=== PATIENT | female | born 1970 | race African-American/Black ===

== ENCOUNTER 2016-05-15 09:24 | Inpatient (IN) | payer OTHER ==
[2016-05-15 09:54] VITALS: BMI 29.2
--- NOTE | 2016-05-15 10:25 | HP ---
CIWA Score - CIWA Score Nausea/Vomitin-Mild Nausea/No Vomiting Muscle Tremors: 4-Moderate,w/Arms Extend Anxiety: 4-Mod. Anxious/Guarded Agitation: 1-Slight > Activity Paroxysmal Sweats: 1-Minimal Palms Moist Orientation: 0-Oriented Tacttile Disturbances: 1-Very Mild Itch/Numbness Auditory Disturbances: 1-Very Mild Visual Disturbances: 1-Very Mild Sensitivity Headache: 1-Very Mild CIWA-Ar Total Score: 15 Admission ROS BHS - HPI Chief Complaint: I want to stop drinking, I drink too much Allergies/Adverse Reactions: Allergies Allergy/AdvReac Type Severity Reaction Status Date / Time Penicillins Allergy Intermediate Difficulty Verified 05/15/16 10:13 Breathing History of Present Illness: 45 yo woman here for detox from alcohol, crack use. last here in 2007, does have history of drug related seizure. Also with chronic pain - in pain management (dr walters, morphine and percocet) but states she missed her appointment on 05/11 and ran out of her pills - last received them 04/15/16 per [facility]). Counseled patient to avoid drinking and taking opiates and to discuss with pain management doctor. Patient also with history of suicide attempt in September 2015. Exam Limitations: Clinical Condition - Ebola screening Have you traveled outside of the country in the last 21 days: No Have you had contact with anyone from an Ebola affected area: No Have you been sick,other than usual withdrawal symptoms: No Do you have a fever: No - Review of Systems Constitutional: Loss of Appetite, Changes in sleep EENT: reports: No Symptoms Reported Respiratory: reports: No Symptoms reported Cardiac: reports: No Symptoms Reported GI: reports: Nausea, Indigestion : reports: Frequency Musculoskeletal: reports: Back Pain, Muscle Pain Integumentary: reports: Dryness Neuro: reports: Headache, Tremors Endocrine: reports: No Symptoms Reported Hematology: reports: No Symptoms Reported Psychiatric: reports: Judgement Intact, Mood/Affect Appropiate, Orientated x3, Anxious Other Systems: Reviewed and Negative Patient History - Patient Medical History Hx Depression: Yes [facility]x [facility] Hx Bipolar Disorder: Yes Hx Schizophrenia: Yes (not currently hearing voices) - Patient Surgical History Past Surgical History: Yes Hx Abdominal Surgery: Yes (abdominal hernia repair 2015) Hx Section: Yes (three) Hx Orthopedic Surgery: Yes (left ankle pins/screws 2009; shoulder injury 2014) - PPD History Previous Implant?: Yes Documented Results: Negative w/o proof PPD to be Administered?: Yes - Reproductive History Patient is a Female of Child Bearing Age (11 -55 yrs old): Yes Patient : No - Smoking Cessation Smoking history: Current every day smoker Have you smoked in the past 12 months: Yes Aproximately how many cigarettes per day: 5 Initiated information on smoking cessation: Yes 'Breaking Loose' booklet given: 05/15/16 (give on floor) - Substance & Tx. History Hx Alcohol Use: Yes Hx Substance Use: Yes Substance Use Type: Alcohol, Cocaine Hx Substance Use Treatment: Yes (detox, rehab) - Substances Abused Alcohol Route: Oral Frequency: Daily Amount used: 1.5 liters viviana, three sixteen oz beers Age of first use: 9 Date of Last Use: 05/14/16 Crack Route: Smoking Frequency: 3-6 times per week Amount used: $200 Age of first use: 14 Date of Last Use: 05/14/16 Family Disease History - Family Disease History Family Disease History: [place]: Mother (, etoh and drugs), Other: Father ( , ) Admission Physical Exam S - Vital Signs Vital Signs: Vital Signs - 24 hr 05/15/16 09:52 Temperature 98.5 F Pulse Rate 75 Respiratory 20 Rate Blood Pressure 138/85 - Physical General Appearance: Yes: Nourished, Appropriately Dressed, Mild Distress HEENTM: Yes: Hearing grossly Normal, Normal ENT Inspection, Normocephalic, Normal Voice, Other (upper dentures) Respiratory: Yes: Normal Breath Sounds, No Respiratory Distress Neck: Yes: No masses,lesions,Nodules, Supple Breast: Yes: Breast Exam Deferred Cardiology: Yes: Regular Rhythm, Regular Rate Abdominal: Yes: Soft Genitourinary: Yes: Frequency Back: Yes: Normal Inspection Musculoskeletal: Yes: full range of Motion, Gait Steady, Back pain Extremities: Yes: Normal Inspection, Normal Range of Motion, Other (left ankle scar) Neurological: Yes: Fully Oriented, Alert, Normal Mood/Affect Integumentary: Yes: Normal Color, Warm Lymphatic: Yes: Within Normal Limits - Diagnostic (1) Alcohol dependence with uncomplicated withdrawal Current Visit: Yes Status: Acute (2) Chronic back pain Current Visit: Yes Status: Chronic Qualifiers: Back pain location: low back pain Back pain laterality: bilateral Sciatica presence: without sciatica Qualified Code(s): M54.5 - Low back pain; G89.29 - Other chronic pain (3) Cocaine dependence Current Visit: Yes Status: Chronic Qualifiers: Substance use status: uncomplicated Qualified Code(s): F14.20 - Cocaine dependence, uncomplicated (4) History of seizure Current Visit: Yes Status: Chronic Comment: drug related (5) History of syphilis Current Visit: Yes Status: Chronic Comment: treated with PCN injections (6) Nicotine dependence Current Visit: Yes Status: Acute Qualifiers: Nicotine product type: cigarettes Substance use status: uncomplicated Qualified Code(s): F17.210 - Nicotine dependence, cigarettes, uncomplicated Cleared for Admission BHS - Detox or Rehab [facility] Level of Care: Medically Managed Detox Regimen/Protocol: Librium [facility] Breath Alcohol Content Breath Alcohol Content: 0 Urine Pregancy Test - Result Urine Test Results: Negative- NO Line Present Urine Drug Screen - Results Drug Screen Negative: No Urine Drug Screen Results: DANIELLE-Cocaine
[2016-05-15] MEDS ORDERED: IBUPROFEN 400 MG TABLET (FP) PO PRN (10:31)
[2016-05-15] MEDS ORDERED: MAG HYDROX/AL HYDROX/SIMETH 30 ML UNIT-DOSE CUP PO PRN (10:31)
[2016-05-15] MEDS ORDERED: MAGNESIUM CITRATE 300 ML BOTTLE PO PRN (10:31)
[2016-05-15] MEDS ORDERED: chlordiazePOXIDE HCL 25 MG CAPSULE PO PRN (10:31)
[2016-05-15] MEDS ORDERED: guaiFENesin/D-METHORPHAN HB 10 ML UNIT-DOSE CUPS PO PRN (10:31)
[2016-05-15] MEDS ORDERED: hydrOXYzine PAMOATE 50 MG CAPSULE (FP) PO PRN (10:31)
[2016-05-15] MEDS ORDERED: LOPERAMIDE HCL 2 MG CAPSULE PO PRN (10:31)
[2016-05-15] MEDS ORDERED: ACETAMINOPHEN 325 MG TABLET (FP) PO PRN (10:31)
[2016-05-15] MEDS ORDERED: P-EPHED 60MG/TRIPROLIDI 2.5MG TABLET PO PRN (10:31)
[2016-05-15] MEDS ORDERED: MAGNESIUM HYDROX 2400MG/30ML ORAL SUSPENSION 30 ML CUP PO PRN (10:31)
[2016-05-15] MEDS ORDERED: MENTHOL/PHENOL 1 EACH UD MM PRN (10:31)
[2016-05-15] MEDS ORDERED: chlordiazePOXIDE HCL 25 MG CAPSULE PO ONE (12:15)
[2016-05-15] MEDS: NICOTINE 14 MG/24 HOURS TOPICAL PATCH TD SCH (14:20)
[2016-05-15] MEDS: chlordiazePOXIDE HCL 25 MG CAPSULE PO SCH ×2 (18:17→22:39)
[2016-05-15 18:38] LABS: URINE APPEARANCE CLEAR; URINE BILIRUBIN NEGATIVE (NEGATIVE); URINE BLOOD NEGATIVE (NEGATIVE); URINE COLOR YELLOW; URINE GLUCOSE (UA) NEGATIVE (NEGATIVE); URINE KETONE NEGATIVE (NEGATIVE); URINE LEUK ESTERASE NEGATIVE (NEGATIVE); URINE NITRITE NEGATIVE (NEGATIVE); URINE PROTEIN NEGATIVE (NEGATIVE); URINE UROBILINOGEN NEGATIVE E.U./dl (0.2-1.0)
[2016-05-15] MEDS: THIAMINE HCL 100 MG TABLET (FP) PO SCH (22:39)
[2016-05-15] MEDS: diphenhydrAMINE HCL 50 MG CAPSULE PO PRN (22:39)
[2016-05-16] MEDS: chlordiazePOXIDE HCL 25 MG CAPSULE PO SCH ×4 (06:06→22:16)
[2016-05-16 09:56] LABS: MCH 30.3 pg (25.7-33.7); MCHC 33.7 g/dl (32.0-36.0); MEAN CELL VOLUME 89.8 fl (80-96); MEAN PLT VOLUME 8.6 fl (7.5-11.1); PLATELET COUNT 265 K/MM3 (134-434); RDW 13.8 % (11.6-15.6); WHITE BLOOD COUNT 6.5 K/mm3 (4.0-10.0)
[2016-05-16 10:06] LABS: ALBUMIN 3.2 g/dl (3.4-5.0); ALK PHOS 33 U/L (45-117); ANION GAP 7 (8-16); BILIRUBIN,TOTAL 0.4 mg/dL (0.2-1.0); CALCIUM 8.5 mg/dL (8.5-10.1); CO2 25 mmol/L (21-32); CREATININE 0.6 mg/dL (0.55-1.02); GLUCOSE,RANDOM 101 mg/dL (74-106); SGPT/ALT 16 U/L (12-78); TOT PROT 5.7 g/dl (6.4-8.2)
[2016-05-16 10:08] LABS: SGOT/AST 4 U/L (15-37)
[2016-05-16] MEDS: PRENATAL VITAMINS W/ FOLIC ACID TABLET (FP) PO SCH (10:13)
[2016-05-16] MEDS: NICOTINE 14 MG/24 HOURS TOPICAL PATCH TD SCH (10:13)
--- NOTE | 2016-05-16 11:38 | EKG ---
Test Reason : Blood Pressure : / mmHG Vent. Rate : 067 BPM Atrial Rate : 067 BPM P-R Int : 116 ms QRS Dur : 088 ms QT Int : 404 ms P-R-T Axes : 060 057 033 degrees QTc Int : 426 ms NORMAL SINUS RHYTHM NORMAL ECG NO PREVIOUS ECGS AVAILABLE Confirmed by FRANTZ CHAVEZ MD ([id number]) on 05/16/2016 11:37:33 AM Referred By: Adan Ledezma Confirmed By:FRANTZ CHAVEZ MD
--- NOTE | 2016-05-16 12:29 | PN ---
S CIWA - CIWA Score Nausea/Vomitin Muscle Tremors: 3 Anxiety: 3 Agitation: 3 Paroxysmal Sweats: 1-Minimal Palms Moist Orientation: 0-Oriented Tacttile Disturbances: 2-Mild Itch/Numbness/Burn Auditory Disturbances: 2-Mild Harshness/Frighten Visual Disturbances: 2-Mild Sensitivity Headache: 2-Mild CIWA-Ar Total Score: 21 BHS Progress Note (SOAP) Subjective: ALERT,IRRITABLE,ANXIOUS,INTERRUPTED SLEEP,TREMOR Objective: 05/16/16 12:27 Vital Signs Temperature 98.4 F 05/16/16 10:01 Pulse Rate 76 05/16/16 10:01 Respiratory Rate 16 05/16/16 10:01 Blood Pressure 114/74 05/16/16 10:01 O2 Sat by Pulse Oximetry (%) EKG NSR Laboratory Last Values WBC 6.5 K/mm3 (4.0-10.0) 05/16/16 07:16 RBC 4.23 M/mm3 (3.60-5.2) 05/16/16 07:16 Hgb 12.8 GM/dL (10.7-15.3) 05/16/16 07:16 Hct 38.0 % (32.4-45.2) 05/16/16 07:16 MCV 89.8 fl (80-96) 05/16/16 07:16 MCHC 33.7 g/dl (32.0-36.0) 05/16/16 07:16 RDW 13.8 % (11.6-15.6) 05/16/16 07:16 Plt Count 265 K/MM3 (134-434) 05/16/16 07:16 MPV 8.6 fl (7.5-11.1) 05/16/16 07:16 Sodium 139 mmol/L (136-145) 05/16/16 07:16 Potassium 3.7 mmol/L (3.5-5.1) 05/16/16 07:16 Chloride 107 mmol/L (98-107) 05/16/16 07:16 Carbon Dioxide 25 mmol/L (21-32) 05/16/16 07:16 Anion Gap 7 (8-16) L 05/16/16 07:16 BUN 9 mg/dL (7-18) 05/16/16 07:16 Creatinine 0.6 mg/dL (0.55-1.02) 05/16/16 07:16 Creat Clearance w eGFR > 60 (>60) 05/16/16 07:16 Random Glucose 101 mg/dL (74-106) 05/16/16 07:16 Calcium 8.5 mg/dL (8.5-10.1) 05/16/16 07:16 Total Bilirubin 0.4 mg/dL (0.2-1.0) 05/16/16 07:16 AST 4 U/L (15-37) L 05/16/16 07:16 ALT 16 U/L (12-78) 05/16/16 07:16 Alkaline Phosphatase 33 U/L (45-117) L 05/16/16 07:16 Total Protein 5.7 g/dl (6.4-8.2) L 05/16/16 07:16 Albumin 3.2 g/dl (3.4-5.0) L 05/16/16 07:16 Urine Color Yellow 05/15/16 17:00 Urine Appearance Clear 05/15/16 17:00 Urine pH 6.0 (5.0-8.0) 05/15/16 17:00 Ur Specific [place] 1.027 (1.001-1.035) 05/15/16 17:00 Urine Protein Negative (NEGATIVE) 05/15/16 17:00 Urine Glucose (UA) Negative (NEGATIVE) 05/15/16 17:00 Urine Ketones Negative (NEGATIVE) 05/15/16 17:00 Urine Blood Negative (NEGATIVE) 05/15/16 17:00 Urine Nitrite Negative (NEGATIVE) 05/15/16 17:00 Urine Bilirubin Negative (NEGATIVE) 05/15/16 17:00 Urine Urobilinogen Negative E.U./dl (0.2-1.0) 05/15/16 17:00 Ur Leukocyte Esterase Negative (NEGATIVE) 05/15/16 17:00 RPR Titer Nonreactive (NONREACTIVE) 05/16/16 07:16 Assessment: 05/16/16 12:28 WITHDRAWAL SYMPTOM Plan: CONTINUE DETOX
--- NOTE | 2016-05-16 12:44 | PN ---
[facility] Progress Note Note: ADDENDUM PATIENT STATED SHE LOSS BALANCE TRYING TO GET UP,KNEEL DOWN ON BOTH KNEES, HISTORY OF ARTHRITIS,NO HEAD INJURY,NO INJURY NOTED TREATMENT INITIATE FALL PROTOCOL 2 FALL PRECAUTION OBSERVATION
[2016-05-16] MEDS: THIAMINE HCL 100 MG TABLET (FP) PO SCH (22:16)
[2016-05-16] MEDS: diphenhydrAMINE HCL 50 MG CAPSULE PO PRN (22:16)
[2016-05-17] MEDS: chlordiazePOXIDE HCL 25 MG CAPSULE PO SCH ×2 (06:14→11:22)
--- NOTE | 2016-05-17 10:16 | PN ---
S CIWA - CIWA Score Nausea/Vomitin-No Nausea/No Vomiting Muscle Tremors: 4-Moderate,w/Arms Extend Anxiety: 3 Agitation: 4-Moderately Restless Paroxysmal Sweats: 3 Orientation: 0-Oriented Tacttile Disturbances: 0-None Auditory Disturbances: 0-None Visual Disturbances: 0-None Headache: 0-None Present CIWA-Ar Total Score: 14 BHS Progress Note (SOAP) Subjective: agitation irritable body aches sweats Objective: 05/17/16 10:15 Vital Signs Temperature 98.1 F 05/17/16 10:00 Pulse Rate 74 05/17/16 10:00 Respiratory Rate 18 05/17/16 10:00 Blood Pressure 107/69 05/17/16 10:00 O2 Sat by Pulse Oximetry (%) Assessment: 05/17/16 10:16 withdrawal sx Plan: continue detox increase fluids
[2016-05-17] MEDS: PRENATAL VITAMINS W/ FOLIC ACID TABLET (FP) PO SCH (11:21)
[2016-05-17] MEDS: NICOTINE 14 MG/24 HOURS TOPICAL PATCH TD SCH (11:23)
--- NOTE | 2016-05-17 15:43 | CONSULT ---
[facility] Psychiatric Consult - Data Date of interview: 05/17/16 Admission source: [facility] Identifying data: This is 45 years oold female with psychiatric hospitalization history intoxicatewd with : Alcohol, Cocaine and Nicotine Substance Abuse History: - Smoking Cessation. Smoking history: Current every day smoker. Have you smoked in the past 12 months: Yes. Aproximately how many cigarettes per day: 5. Initiated information on smoking cessation: Yes. ' Breaking Loose' booklet given: 05/15/16 (give on floor). - Substance & Tx. History. Hx Alcohol Use: Yes. Hx Substance Use: Yes. Substance Use Type: Alcohol, Cocaine. Hx Substance Use Treatment: Yes (detox, rehab). - Substances Abused. Alcohol. Route: Oral. Frequency: Daily. Amount used: 1.5 liters viviana, three sixteen oz beers. Age of first use: 9. Date of Last Use: 05/14/16. Crack. Route: Smoking. Frequency: 3-6 times per week. Amount used: $200. Age of first use: 14. Date of Last Use: 05/14/16 Medical History: HIV Psychiatric History: PATIENT REPORTS TO Natali MALIN bBIPOLAR DISORDER WITH MOST RECENT PSYCHIATRIC ADMISSIONON ON 2016 AT [facility] after manic epizode. Patient reports taking prior to admission: - Smoking Cessation. Smoking history: Current every day smoker. Have you smoked in the past 12 months: Yes. Aproximately how many cigarettes per day: 5. Initiated information on smoking cessation: Yes. 'Breaking Loose' booklet given: (give on floor). - Substance & Tx. History. Hx Alcohol Use: Yes. Hx Substance Use: Yes. Substance Use Type: Alcohol, Cocaine. Hx Substance Use Treatment: Yes (detox, rehab). - Substances Abused. Alcohol. Route: Oral. Frequency: Daily. Amount used: 1.5 liters viviana, three sixteen oz beers. Age of first use: 9. Date of Last Use: 05/14/16. Crack. Route: Smoking. Frequency: 3-6 times per week. Amount used: $200. Age of first use: 14. Date of Last Use: 05/14/16 Physical/Sexual Abuse/Trauma History: Denies Additional Comment: - Smoking Cessation. Smoking history: Current every day smoker. Have you smoked in the past 12 months: Yes. Aproximately how many cigarettes per day: 5. Initiated information on smoking cessation: Yes. ' Breaking Loose' booklet given: 05/15/16 (give on floor). - Substance & Tx. History. Hx Alcohol Use: Yes. Hx Substance Use: Yes. Substance Use Type: Alcohol, Cocaine. Hx Substance Use Treatment: Yes (detox, rehab). - Substances Abused. Alcohol. Route: Oral. Frequency: Daily. Amount used: 1.5 liters viviana, three sixteen oz beers. Age of first use: 9. Date of Last Use: 05/14/16. Crack. Route: Smoking. Frequency: 3-6 times per week. Amount used: $200. Age of first use: 14. Date of Last Use: 05/14/16 Mental Status Exam - Mental Status Exam Alert and Oriented to: Person Cognitive Function: Fair Patient Appearance: Unkempt Mood: Anxious Affect: Constricted Patient Behavior: Cooperative Speech Pattern: Appropriate Voice Loudness: Normal Thought Process: Circumstantial Thought Disorder: Being Controlled Hallucinations: Denies Suicidal Ideation: Denies Homicidal Ideation: Denies Insight/Judgement: Fair Sleep: Difficulty falling asleep Appetite: Weight gain Muscle strength/Tone: Normal Gait/Station: Normal Additional Comments: Depakote 250 mg po bid Psychiatric Findings - Problem List ([place] 1, 2,3) (1) Alcohol dependence with uncomplicated withdrawal Current Visit: Yes Status: Acute (2) Nicotine dependence Current Visit: Yes Status: Acute Qualifiers: Nicotine product type: cigarettes Substance use status: uncomplicated Qualified Code(s): F17.210 - Nicotine dependence, cigarettes, uncomplicated (3) Cocaine dependence Current Visit: Yes Status: Chronic Qualifiers: Substance use status: uncomplicated Qualified Code(s): F14.20 - Cocaine dependence, uncomplicated (4) Bipolar disorder Current Visit: Yes Status: Acute - Initial Treatment Plan Initial Treatment Plan: Depakote 250 mg po bid
[2016-05-17] MEDS ORDERED: DIVALPROEX SODIUM 250 MG TABLET E.C. (FP) PO STA (15:50)
[2016-05-17] MEDS: chlordiazePOXIDE 5 MG CAPSULE PO SCH ×2 (17:51→22:19)
[2016-05-17] MEDS: THIAMINE HCL 100 MG TABLET (FP) PO SCH (22:19)
[2016-05-17] MEDS: diphenhydrAMINE HCL 50 MG CAPSULE PO PRN (22:19)
[2016-05-17] MEDS: DIVALPROEX SODIUM 250 MG TABLET E.C. (FP) PO SCH (22:19)
[2016-05-18] MEDS: chlordiazePOXIDE 5 MG CAPSULE PO SCH ×2 (05:55→10:35)
[2016-05-18] MEDS: DIVALPROEX SODIUM 250 MG TABLET E.C. (FP) PO SCH (10:35)
[2016-05-18] MEDS: PRENATAL VITAMINS W/ FOLIC ACID TABLET (FP) PO SCH (10:35)
[2016-05-18] MEDS: NICOTINE 14 MG/24 HOURS TOPICAL PATCH TD SCH (10:36)
[2016-05-18 11:23] VITALS: BP 113/61; PULSE 83; TEMP 96.8
--- NOTE | 2016-05-18 11:42 | PN ---
BHS Progress Note (SOAP) Subjective: interrupted sleep, sweats, Objective: 05/18/16 11:40 Vital Signs Temperature 96.8 F L 05/18/16 11:22 Pulse Rate 83 05/18/16 11:22 Respiratory Rate 16 05/18/16 11:22 Blood Pressure 113/61 05/18/16 11:22 O2 Sat by Pulse Oximetry (%) Laboratory Tests 05/15/16 05/16/16 05/16/16 17:00 07:16 07:16 WBC 6.5 RBC 4.23 Hgb 12.8 Hct 38.0 MCV 89.8 MCHC 33.7 RDW 13.8 Plt Count 265 MPV 8.6 Sodium 139 Potassium 3.7 Chloride 107 Carbon Dioxide 25 Anion Gap 7 L BUN 9 Creatinine 0.6 Creat Clearance w eGFR > 60 Random Glucose 101 Calcium 8.5 Total Bilirubin 0.4 AST 4 L ALT 16 Alkaline Phosphatase 33 L Total Protein 5.7 L Albumin 3.2 L Urine Color Yellow Urine Appearance Clear Urine pH 6.0 Ur Specific [place] 1.027 Urine Protein Negative Urine Glucose (UA) Negative Urine Ketones Negative Urine Blood Negative Urine Nitrite Negative Urine Bilirubin Negative Urine Urobilinogen Negative Ur Leukocyte Esterase Negative RPR Titer 05/16/16 07:16 WBC RBC Hgb Hct MCV MCHC RDW Plt Count MPV Sodium Potassium Chloride Carbon Dioxide Anion Gap BUN Creatinine Creat Clearance w eGFR Random Glucose Calcium Total Bilirubin AST ALT Alkaline Phosphatase Total Protein Albumin Urine Color Urine Appearance Urine pH Ur Specific [place] Urine Protein Urine Glucose (UA) Urine Ketones Urine Blood Urine Nitrite Urine Bilirubin Urine Urobilinogen Ur Leukocyte Esterase RPR Titer Nonreactive pt aox3 in nad ambulating Assessment: 05/18/16 11:41 withdrawal sx's Plan: cont. detox increase fluids d/c in am
--- NOTE | 2016-05-18 12:32 | DS ---
[facility] Detox Discharge Summary Admission Date: 05/15/16 Discharge Date: 05/18/16 - History Present History: Alcohol Dependence - Physical Exam Results Vital Signs: Vital Signs Temperature 96.8 F L 05/18/16 11:22 Pulse Rate 83 05/18/16 11:22 Respiratory Rate 16 05/18/16 11:22 Blood Pressure 113/61 05/18/16 11:22 O2 Sat by Pulse Oximetry (%) - Treatment Hospital Course: Detox Protocol Followed, Detoxed Safely, Responded well, Discharged Condition Good - Medication Discharge Medications: Ambulatory Orders Divalproex [Depakote -] 250 mg PO HS 05/15/16 Meloxicam [Mobic] 7.5 mg PO DAILY 05/15/16 Divalproex Sodium [Depakote] 250 mg PO BID #60 tablet. 05/17/16 Divalproex [Depakote -] 250 mg PO BID #60 05/17/16 - Diagnosis (1) Alcohol dependence with uncomplicated withdrawal Current Visit: Yes Status: Chronic (2) Bipolar disorder Current Visit: Yes Status: Chronic Qualifiers: Most recent bipolar episode type: most recent episode unspecified type (3) Nicotine dependence Current Visit: Yes Status: Chronic Qualifiers: Nicotine product type: cigarettes Substance use status: uncomplicated Qualified Code(s): F17.210 - Nicotine dependence, cigarettes, uncomplicated (4) Chronic back pain Current Visit: Yes Status: Chronic Qualifiers: Back pain location: low back pain Back pain laterality: bilateral Sciatica presence: without sciatica Qualified Code(s): M54.5 - Low back pain; G89.29 - Other chronic pain (5) Cocaine dependence Current Visit: Yes Status: Chronic Qualifiers: Substance use status: uncomplicated Qualified Code(s): F14.20 - Cocaine dependence, uncomplicated - AMA Did Patient Leave Against Medical Advice: No (pt d/c'ed early because to have surgery in am )
[2016-05-18] MEDS ORDERED: chlordiazePOXIDE HCL 10 MG CAPSULE PO SCH (17:00)
== END 2016-05-18 13:10 | disposition home or self-care (01) | DRG 774 ==
LOC: YASAS 09:24 → Y6N 11:05
PROVIDERS: ADMIT Internal Medicine Addiction Medicine; ATTEND Internal Medicine Addiction Medicine
PROC: HZ2ZZZZ Detoxification Services for Substance Abuse Treatment (ICD-10-PCS; principal; 2016-05-18)
DX: F10.20 Alcohol dependence, uncomplicated (principal); F14.20 Cocaine dependence, uncomplicated; F17.210 Nicotine dependence, cigarettes, uncomplicated; F31.9 Bipolar disorder, unspecified; M54.5 Low back pain; G89.29 Other chronic pain; Z86.69 Personal history of other diseases of the nervous system and sense organs; A53.9 Syphilis, unspecified
CPT/HCPCS: 36415; 80053; 80164; 81003; 85027; 86593; 93005; 93010

== ENCOUNTER 2021-06-22 07:57 | Inpatient (IN) | payer OTHER ==
[2021-06-10 14:51] VITALS: BMI 34.1
[~2021-06-22 07:57] MED LIST: TRANEXAMIC ACID 1000 MG/10 ML VIAL IVPUSH ONE
[2021-06-22] MEDS ORDERED: ONDANSETRON 4 MG/2 ML VIAL ONE (08:50)
[2021-06-22] MEDS ORDERED: ceFAZolin SODIUM 1 GM VIAL ONE ×2 (08:50→20:16)
[2021-06-22] MEDS ORDERED: VANCOMYCIN 1,000 MG VIAL (RESTRICTED TO ID ONLY) ONE ×2 (09:43→11:27)
[2021-06-22] MEDS ORDERED: BUPIVACAINE HCL/PF 0.5% (5 MG/ML) 30 ML VIAL IJ ONE (09:51)
[2021-06-22] MEDS ORDERED: MIDAZOLAM HCL 2 MG/2 ML SINGLE DOSE VIAL ONE ×2 (09:52→13:22)
[2021-06-22] MEDS ORDERED: DEXAMETHASONE SOD PHOSPHATE 10 MG/1 ML VIAL ONE (09:52)
[2021-06-22] MEDS ORDERED: BUPIVACAINE HCL/PF 0.5% (5MG/ML) 10 ML VIAL ONE (09:52)
[2021-06-22] MEDS ORDERED: PROPOFOL 20 ML ONE ×5 (11:33→14:10)
[2021-06-22] MEDS ORDERED: SUCCINYLCHOLINE CHLORIDE 200 MG/10 ML SYRINGE ONE (11:34)
[2021-06-22] MEDS ORDERED: BUPIVICAINE 0.25%/MORPH PF/KETOROLAC - 51ML DISP.SYRINGE IA ONE ×2 (13:04→13:46)
[2021-06-22] MEDS ORDERED: METOPROLOL TARTRATE 5 MG/5 ML VIAL ONE (14:09)
[2021-06-22] MEDS ORDERED: MAGNESIUM HYDROX 2400MG/30ML ORAL SUSPENSION 30 ML CUP PO PRN (14:49)
[2021-06-22] MEDS ORDERED: ONDANSETRON 4 MG/2 ML VIAL IVPUSH PRN ×2 (14:49→14:50)
[2021-06-22] MEDS ORDERED: MAG HYDROX/AL HYDROX/SIMETH 30 ML UNIT-DOSE CUP PO PRN (14:49)
[2021-06-22] MEDS ORDERED: ACETAMINOPHEN INJECTION 100 ML IVPB ONE (14:59)
[2021-06-22] MEDS ORDERED: ACETAMINOPHEN 1000 MG/100 ML BAG IVPB ONE (15:00)
[2021-06-22] MEDS ORDERED: LACTATED RINGERS SOLUTION 1,000 ML IV SCH (15:00)
[2021-06-22] MEDS: oxyCODONE HCL 5 MG TABLET PO PRN ×3 (17:58→23:59)
[2021-06-22] MEDS ORDERED: DEXTROSE 5%-WATER - 50 ML IVPB ONE (20:16)
[2021-06-22] MEDS: CEFAZOLIN 2 GM in DEXTROSE 5%-WATER - 50 ML IVPB SCH (20:18)
[2021-06-22] MEDS: GABAPENTIN 300 MG CAPSULE PO SCH (21:16)
[2021-06-22] MEDS: ACETAMINOPHEN 500 MG TABLET (FP) PO SCH (21:17)
[2021-06-22] MEDS: SENNOSIDES/DOCUSATE COMBO (SENNA PLUS) TABLET (UD) PO SCH (21:17)
[2021-06-23] MEDS: oxyCODONE HCL 5 MG TABLET PO PRN ×8 (00:04→23:31)
[2021-06-23] MEDS ORDERED: ceFAZolin SODIUM 1 GM VIAL ONE ×2 (03:37→11:30)
[2021-06-23] MEDS ORDERED: DEXTROSE 5%-WATER - 50 ML IVPB ONE ×2 (03:38→11:30)
[2021-06-23] MEDS: CEFAZOLIN 2 GM in DEXTROSE 5%-WATER - 50 ML IVPB SCH ×2 (04:24→11:32)
[2021-06-23] MEDS: ACETAMINOPHEN 500 MG TABLET (FP) PO SCH ×4 (04:25→22:35)
[2021-06-23 09:14] LABS: CALCIUM 8.6 mg/dl (8.5-10); CREATININE 0.7 mg/dl (0.55-1.3)
[2021-06-23] MEDS: SENNOSIDES/DOCUSATE COMBO (SENNA PLUS) TABLET (UD) PO SCH ×3 (09:17→23:56)
[2021-06-23] MEDS: MULTIVITAMINS (DAILY MVI) TABLET (FP) PO SCH (09:17)
[2021-06-23] MEDS: PANTOPRAZOLE 40 MG TABLET PO SCH (09:17)
[2021-06-23] MEDS: GABAPENTIN 300 MG CAPSULE PO SCH ×2 (09:17→22:36)
[2021-06-23] MEDS: ASPIRIN 325 MG TABLET PO SCH ×2 (09:17→22:36)
[2021-06-23 11:00] LABS: HEMATOCRIT 29.9 % (32.4-45.2); HEMOGLOBIN 10.4 G/dL (10.7-15.3); MCH 29.7 pg (25.7-33.7); MCHC 34.7 g/dl (32.0-36.0); MEAN CELL VOLUME 85.4 fl (80-96); RDW 14.8 % (11.6-15.6)
[2021-06-23 11:01] LABS: PLATELET COUNT 323.8 10^3/uL (134-434)
[2021-06-23] MEDS: DIVALPROEX SODIUM 250 MG TABLET E.C. PO SCH ×2 (12:09→22:35)
[2021-06-24 06:34] VITALS: BP 131/68; PULSE 96; TEMP 98.5
[2021-06-24 08:08] LABS: HEMATOCRIT 28.7 % (32.4-45.2); HEMOGLOBIN 9.8 G/dL (10.7-15.3); MCH 29.4 pg (25.7-33.7); MCHC 34.3 g/dl (32.0-36.0); MEAN CELL VOLUME 85.7 fl (80-96); PLATELET COUNT 329.2 10^3/uL (134-434); RBC 3.35 10^6/uL (3.60-5.2); RDW 14.8 % (11.6-15.6); WHITE BLOOD COUNT 11.8 10^3/uL (4.0-10.8)
[2021-06-24] MEDS: oxyCODONE HCL 5 MG TABLET PO PRN ×2 (08:33→11:58)
[2021-06-24] MEDS: ACETAMINOPHEN 500 MG TABLET (FP) PO SCH (08:35)
[2021-06-24] MEDS: MULTIVITAMINS (DAILY MVI) TABLET (FP) PO SCH (09:52)
[2021-06-24] MEDS: PANTOPRAZOLE 40 MG TABLET PO SCH (09:52)
[2021-06-24] MEDS: ASPIRIN 325 MG TABLET PO SCH (09:53)
[2021-06-24] MEDS: DIVALPROEX SODIUM 250 MG TABLET E.C. PO SCH (09:53)
[2021-06-24] MEDS: GABAPENTIN 300 MG CAPSULE PO SCH (09:53)
[2021-06-24] MEDS: SENNOSIDES/DOCUSATE COMBO (SENNA PLUS) TABLET (UD) PO SCH (09:53)
== END 2021-06-24 13:48 | disposition home or self-care (01) | DRG 301 ==
LOC: FM/S 07:57
PROVIDERS: ADMIT Orthopaedic Surgery Sports Medicine; ATTEND Orthopaedic Surgery Sports Medicine
PROC: 0SRB03A Replacement of Left Hip Joint with Ceramic Synthetic Substitute, Uncemented, Open Approach (ICD-10-PCS; 2021-06-22)
PROC: 8E0W0CZ Robotic Assisted Procedure of Trunk Region, Open Approach (ICD-10-PCS; 2021-06-22)
PROC: 0SRB02A Replacement of Left Hip Joint with Metal on Polyethylene Synthetic Substitute, Uncemented, Open Approach (ICD-10-PCS; principal; 2021-06-22 11:58)
DX: M16.12 Unilateral primary osteoarthritis, left hip (principal); F31.9 Bipolar disorder, unspecified
CPT/HCPCS: 36415; 73502-TC-LT-FY; 80048; 84703; 85027; 88305-TC; 88311-TC; 94760; 97010-GP; 97116-GP; 97162-GP; J1100

== ENCOUNTER 2022-02-04 07:34 | Inpatient (IN) | payer OTHER ==
[2022-02-04 08:52] VITALS: BMI 32.5
[2022-02-04] MEDS ORDERED: VANCOMYCIN 1,000 MG in DEXTROSE 5%-WATER - 250 ML IVPB ONE (10:00)
[2022-02-04] MEDS ORDERED: VANCOMYCIN 1,000 MG VIAL (RESTRICTED TO ID ONLY) ONE ×2 (10:07→11:50)
[2022-02-04] MEDS ORDERED: TRANEXAMIC ACID 1000 MG/10 ML VIAL IVPUSH ONE (11:00)
[2022-02-04] MEDS ORDERED: oxyCODONE HCL 5 MG TABLET PO PRN (11:09)
[2022-02-04] MEDS ORDERED: ACETAMINOPHEN 325 MG TABLET (FP) PO PRN (11:09)
[2022-02-04] MEDS ORDERED: MIDAZOLAM HCL 2 MG/2 ML SINGLE DOSE VIAL ONE (11:15)
[2022-02-04] MEDS ORDERED: ACETAMINOPHEN INJECTION 100 ML IVPB ONE (11:15)
[2022-02-04] MEDS ORDERED: BUPIVACAINE HCL/PF 0.5% (5 MG/ML) 30 ML VIAL IJ ONE (11:15)
[2022-02-04] MEDS ORDERED: LACTATED RINGERS SOLUTION 1,000 ML IV SCH ×2 (11:15→15:15)
[2022-02-04] MEDS ORDERED: DEXAMETHASONE SOD PHOSPHATE 10 MG/1 ML VIAL ONE (11:15)
[2022-02-04] MEDS ORDERED: BUPIVACAINE HCL/PF 0.5% (5MG/ML) 10 ML VIAL ONE (11:19)
[2022-02-04] MEDS ORDERED: DEXAMETHASONE SOD PHOSPHATE 4 MG/1 ML VIAL ONE (11:26)
[2022-02-04] MEDS ORDERED: KETOROLAC TROMETHAMINE 30 MG/1 ML VIAL ONE (11:26)
[2022-02-04] MEDS ORDERED: TRANEXAMIC ACID 1000 MG/10 ML VIAL ONE ×2 (11:26→14:03)
[2022-02-04] MEDS ORDERED: PROPOFOL 80 ML ONE (11:26)
[2022-02-04] MEDS ORDERED: ONDANSETRON 4 MG/2 ML VIAL ONE (11:26)
[2022-02-04] MEDS ORDERED: PHENYLEPHRINE HCL 10 MG/1 ML SINGLE DOSE VIAL ONE (12:03)
[2022-02-04] MEDS ORDERED: PROPOFOL 60 ML ONE (12:21)
[2022-02-04] MEDS ORDERED: KETAMINE HCL 200 MG/20 ML VIAL ONE (12:41)
[2022-02-04] MEDS ORDERED: BUPIVICAINE 0.25%/MORPH PF/KETOROLAC - 51ML DISP.SYRINGE IA ONE (13:47)
[2022-02-04] MEDS ORDERED: ONDANSETRON 4 MG/2 ML VIAL IVPUSH PRN (15:10)
[2022-02-04] MEDS ORDERED: MAG HYDROX/AL HYDROX/SIMETH 30 ML UNIT-DOSE CUP PO PRN (15:10)
[2022-02-04] MEDS ORDERED: oxyCODONE HCL 10 MG SUSTAINED ACTING TABLET PO PRN (15:15)
[2022-02-04] MEDS ORDERED: FENTANYL CITRATE/PF 50 MCG/ML VIAL ONE (15:26)
[2022-02-04] MEDS: ACETAMINOPHEN 500 MG TABLET (FP) PO SCH ×2 (17:05→23:44)
[2022-02-04] MEDS: CEFAZOLIN SODIUM 2 GM in DEXTROSE 5%-WATER 100 ML IVPB SCH (17:48)
[2022-02-04] MEDS: oxyCODONE HCL 5 MG TABLET PO PRN ×2 (17:48→22:07)
[2022-02-04] MEDS: ASPIRIN 325 MG TABLET PO SCH (22:05)
[2022-02-04] MEDS: SENNOSIDES/DOCUSATE COMBO (SENNA PLUS) TABLET (UD) PO SCH (22:06)
[2022-02-04] MEDS: GABAPENTIN 300 MG CAPSULE PO SCH (22:06)
[2022-02-04] MEDS: ASCORBIC ACID 500 MG TABLET (FP) PO SCH (22:06)
[2022-02-05 02:03] VITALS: PULSE 81; RESP 18
[2022-02-05] MEDS: CEFAZOLIN SODIUM 2 GM in DEXTROSE 5%-WATER 100 ML IVPB SCH (02:43)
[2022-02-05] MEDS: oxyCODONE HCL 5 MG TABLET PO PRN ×4 (03:43→15:27)
[2022-02-05] MEDS: ACETAMINOPHEN 500 MG TABLET (FP) PO SCH (06:57)
[2022-02-05 06:58] VITALS: BP 106/62; TEMP 98.3
[2022-02-05 08:19] LABS: CREATININE 0.7 mg/dl (0.55-1.3)
[2022-02-05 08:32] LABS: HEMATOCRIT 26.9 % (32.4-45.2); HEMOGLOBIN 8.8 G/dL (10.7-15.3); MCH 29.1 pg (25.7-33.7); MCHC 32.9 g/dl (32.0-36.0); MEAN CELL VOLUME 88.4 fl (80-96); MEAN PLT VOLUME 7.9 fl (7.5-11.1); PLATELET COUNT 310.8 10^3/uL (134-434); RBC 3.04 10^6/uL (3.60-5.2); WHITE BLOOD COUNT 10.3 10^3/uL (4.0-10.8)
[2022-02-05] MEDS: ASCORBIC ACID 500 MG TABLET (FP) PO SCH (09:03)
[2022-02-05] MEDS: ASPIRIN 325 MG TABLET PO SCH (09:04)
[2022-02-05] MEDS: GABAPENTIN 300 MG CAPSULE PO SCH (09:04)
[2022-02-05] MEDS: SENNOSIDES/DOCUSATE COMBO (SENNA PLUS) TABLET (UD) PO SCH (09:04)
[2022-02-05] MEDS ORDERED: PANTOPRAZOLE 40 MG TABLET PO SCH (10:00)
[2022-02-05] MEDS ORDERED: MULTIVITAMINS (DAILY MVI) TABLET (FP) PO SCH (10:00)
[2022-02-05] MEDS ORDERED: DIVALPROEX SODIUM 500 MG TABLET E.C. PO SCH (10:00)
== END 2022-02-05 16:44 | disposition home or self-care (01) | DRG 301 ==
LOC: FASUSAT 07:34 → FM/S 08:51
PROVIDERS: ADMIT Internal Medicine; ATTEND Internal Medicine
PROC: 8E0W0CZ Robotic Assisted Procedure of Trunk Region, Open Approach (ICD-10-PCS; 2022-02-04)
PROC: 0SR90JZ Replacement of Right Hip Joint with Synthetic Substitute, Open Approach (ICD-10-PCS; principal; 2022-02-04 12:27)
DX: M16.11 Unilateral primary osteoarthritis, right hip (principal); F31.9 Bipolar disorder, unspecified; E66.9 Obesity, unspecified; Z68.32 Body mass index [BMI] 32.0-32.9, adult
CPT/HCPCS: 36415; 73502-TC-RT-FY; 80048; 84703; 85027; 88305-TC; 88311-TC; 94760; 97010-GP; 97116-GP; 97162-GP; C1713; C1776; C1889; J1100